=== PATIENT | male | born 1945 | race Caucasian/White ===

== ENCOUNTER 2022-01-04 13:49 | Emergency (ER) | payer OTHER ==
[~2022-01-04] VITALS: Wt 72.6 kg
[2022-01-04] MEDS ORDERED: SIMVASTATIN5 MG PO (14:24)
[2022-01-04] MEDS ORDERED: OMEPRAZOLE MAGN20 MG PO (14:24)
[2022-01-04] MEDS ORDERED: BUDESONIDE-FO10.2 G1 INH (14:26)
[2022-01-04] MEDS ORDERED: [UNRECOGNIZED DRUG - OTHER] PO (14:28)
[2022-01-04] MEDS ORDERED: PROAIR HFA8.5 GM INH (14:28)
[2022-01-04] MEDS ORDERED: LASIX40 MG PO (14:29)
[2022-01-04] MEDS ORDERED: COREG25 MG PO (14:33)
[2022-01-04] MEDS ORDERED: KLOR-CON M2020 ME1 PO (14:33)
[2022-01-04] MEDS ORDERED: SINGULAIR10 M1 PO (14:34)
[2022-01-04] MEDS ORDERED: APRESOLINE25 MG PO (14:34)
[2022-01-04 15:56] LABS: BILIRUBIN Negative (Negative); BLOOD Trace-Intact (Negative); CLARITY Cloudy (Clear); COLOR Yellow (Yellow); GLUCOSE Negative (Negative); KETONE Negative (Negative); LEUKO ESTERASE Negative (Negative); NITRITE Negative (Negative); PH 5.5 (4.5-8.0)
[2022-01-04 16:11] LABS: BACTERIA TRACE; RBC 21-30 rbc/hpf (0-2)
== END 2022-01-04 16:50 | disposition home or self-care (01) ==
LOC: ED 13:49
PROVIDERS: Physician Assistant
DX: R33.9 Retention of urine, unspecified (principal); Z79.899 Other long term (current) drug therapy